=== PATIENT | female | born 1965 | race Caucasian/White ===

== ENCOUNTER 2018-08-21 15:48 | Day surgery (SDC) | payer BC ==
[2018-08-21] VITALS (21 sets, daily range): BP systolic 101–133; BP diastolic 51–86; PULSE 84–96; RESP 14–26; Ht 152.4 cm; Wt 122.4 kg
[~2018-08-21] VITALS: Ht 152.4 cm; Wt 122.4 kg
[~2018-08-21 15:48] MED LIST: ARIP5TAB14 PO; CLON0.5T14 PO; HYDR-4011 PO; LEVO50TA71 PO; ONDA8TAB9 PO; PANT40TA3 PO; SERT100T PO
[2018-08-21] MEDS ORDERED: BUPIVACAINE 0.25%/EPI (SDV) 30 ML INJ ONE (15:49)
[2018-08-21] MEDS ORDERED: POLYMYXIN/BACITRACIN 1L IRRIG ONE (15:49)
[2018-08-21] MEDS ORDERED: NEOMYC/POLYMYX/BACIT 30 GM OINT ONE (15:49)
[2018-08-21] MEDS ORDERED: LACTATED RINGER'S 1,000 ML IV SCH (17:00)
--- NOTE | 2018-08-21 17:41 | PREAC ---
Date/Time of Note Date/Time of Note DATE: 08/21/18 TIME: 17:37 Anesthesia Eval and Record Evaluation Time Pre-Procedure Interview DATE: 08/21/18 TIME: 17:37 Age 53 Sex female NPO: 8 hrs Preoperative diagnosis RIGHT FOOT FIFTH METATARSAL BASE AVULSION FRACTURE Planned procedure RIGHT FOOT METATARSAL BASE AVULSION Past Medical History Past Medical History: Includes Endo: Hypothyroid GI: GERD, Morbid obesity Psych: Depression Surgery & Anesthesia Issues No known issue Meds Anticoagulation: No Beta Tila within 24 hr: No Reason Beta Tila not given: Pt. not on B-Tila Reported Medications Hydrocodone/Acetaminophen ([place] 5-325 Tablet) 1 Each Tablet, 1 EACH PO DAILY PRN for PAIN, TAB 08/21/18 Aripiprazole* (Abilify*) 5 Mg Tab, 5 MG PO DAILY, #30 TAB 08/21/18 Clonazepam* (Clonazepam*) 0.5 Mg Tablet, 0.25 MG PO DAILY PRN for ANXIETY, TAB 08/21/18 Levothyroxine Sodium* (Levoxyl*) 50 Mcg Tablet, 50 MCG PO BEFORE BREAKFAST, #30 TAB 08/21/18 Ondansetron Hcl* (Zofran*) 8 Mg Tablet, 8 MG PO TID PRN for NAUSEA AND OR VOMITING, TAB 08/21/18 Pantoprazole* (Protonix*) 40 Mg Tablet.dr, 40 MG PO DAILY, TAB 08/21/18 Sertraline Hcl* (Zoloft*) 100 Mg Tablet, 200 MG PO DAILY, #60 TAB 08/21/18 Current Medications Lactated Ringer's 1,000 ml @ 25 mls/hr Q24H IV Last administered on 08/21/18at 16:44; Admin Dose 25 MLS/HR; Start 08/21/18 at 17:00 Meds reviewed: Yes Allergies Coded Allergies: amoxicillin (Verified Allergy, Unknown, 08/21/18) ciprofloxacin (Verified Allergy, Unknown, 08/21/18) clarithromycin (Verified Allergy, Unknown, 08/21/18) clavulanic acid (Verified Allergy, Unknown, 08/21/18) levofloxacin (Verified Allergy, Unknown, 08/21/18) Allergies Reviewed: Yes Labs/Studies Labs Reviewed: Reviewed by anesthesiologist test: Negative Studies: ECG, CXR Pre-procedure Exam Last vitals Vital Signs Date Temp Pulse Resp B/P (MAP) Pulse Ox O2 O2 Flow FiO2 Time Delivery Rate 08/21/18 97.6 87 16 111/69 97 Room Air 16:09 (83) Airway: Adequate mouth opening Mallampati: Mallampati II Teeth: Normal Lung: Normal Heart: Normal ASA Physical Status ASA physical status: 3 Emergency: None Planned Anesthetic General/MAC: ETT Pre-operative Attestations Prior to commencing anesthesia and surgery, the patient was re-evaluated, there was verification of: *The patient's identity *The results of appropriate recent lab work and preoperative vital signs *The above evaluation not changing prior to induction *Anesthetic plan, risk benefits, alternative and complications discussed with patient/family; questions answered; patient/family understands, accepts and wis hes to proceed. DAKSHA KELLOGG Aug 21, 2018 17:41
--- NOTE | 2018-08-21 18:53 | HPN ---
Date/Time of Note Date/Time of Note DATE: 08/21/18 TIME: 18:52 Interval H&P Admission Note Pt. seen H&P reviewed: No system changes JAKE WOLFE MD Aug 21, 2018 18:53
[2018-08-21] MEDS ORDERED: PROPOFOL 20 ML ONE (18:55)
[2018-08-21] MEDS ORDERED: LIDOCAINE 2% (SDV) 5 ML INJ ONE (18:55)
[2018-08-21] MEDS ORDERED: POLYMYXIN/BACITRACIN 1L IRRIG IRR ONE (18:55)
[2018-08-21] MEDS ORDERED: MIDAZOLAM 1 MG/ML 2 ML INJ ONE (18:56)
[2018-08-21] MEDS ORDERED: DESFLURANE 15 MIN ONE (19:00)
[2018-08-21] MEDS ORDERED: CEFAZOLIN 1 GM INJ ONE (19:00)
[2018-08-21] MEDS ORDERED: KETOROLAC 30 MG INJ IV SCH (19:00)
[2018-08-21] MEDS ORDERED: morphine 2 MG INJ IV PRN (19:00)
[2018-08-21] MEDS ORDERED: ROPIVACAINE 0.5 % 30 ML VIAL ONE (19:02)
[2018-08-21] MEDS ORDERED: DEXAMETHASONE 4 MG/ML 5 ML INJ ONE ×2 (19:04→19:22)
[2018-08-21] MEDS ORDERED: METOCLOPRAMIDE 10 MG INJ ONE (19:22)
[2018-08-21] MEDS ORDERED: FAMOTIDINE 20 MG INJ ONE (19:22)
[2018-08-21] MEDS ORDERED: ONDANSETRON 4 MG INJ ONE ×2 (19:22→20:36)
[2018-08-21] MEDS ORDERED: NEOMYC/POLYMYX/BACIT 30 GM OINT TOP ONE ×2 (19:43→20:40)
[2018-08-21] MEDS ORDERED: THROMBIN 5000 UNIT VIAL ONE (20:24)
[2018-08-21] MEDS ORDERED: CA CHLORIDE 10% 10 ML SYRINGE ONE ×2 (20:25→20:26)
[2018-08-21] MEDS ORDERED: CA CHLORIDE (GM) 10% 10 ML INJ ONE (20:26)
[2018-08-21] MEDS ORDERED: KETOROLAC 30 MG INJ ONE (20:36)
[2018-08-21] MEDS ORDERED: SUGAMMADEX SODIUM 200 MG/2 ML VIAL IV ONE (20:49)
--- NOTE | 2018-08-21 21:11 | PAC ---
Date/Time of Note Date/Time of Note DATE: 08/21/18 TIME: 21:11 Post-Anesthesia Notes Post-Anesthesia Note Last documented vital signs Vital Signs Date Temp Pulse Resp B/P (MAP) Pulse Ox O2 O2 Flow FiO2 Time Delivery Rate 08/21/18 99.6 80 15 101/57 100 21:09 08/21/18 87 16 111/69 97 Room Air 16:09 (83) Activity: WNL Respiratory function: WNL Cardiovascular function: WNL Mental status: Baseline Pain reasonably controlled: Yes Hydration appropriate: Yes Nausea/Vomiting absent: Yes FADY GONZALEZ DO Aug 21, 2018 21:11
--- NOTE | 2018-08-21 21:14 | QN ---
Documentation Job number: [id number] JAKE WOLFE MD Aug 21, 2018 21:14
[2018-08-21] MEDS ORDERED: OXYCODONE/ACETAMINOPHEN (5/325) TAB PO PRN ×2 (21:30)
[2018-08-21] MEDS ORDERED: HYDROmorphONE 1 MG/5 ML IV SYRINGE IV PRN (21:30)
--- NOTE | 2018-08-21 21:39 | OPR ---
DATE OF OPERATION: 08/21/2018 PREOPERATIVE DIAGNOSES: 1. 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 2. Right foot peroneal brevis tear. POSTOPERATIVE DIAGNOSES: 1. 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 2. Right foot peroneal brevis tear. PROCEDURES: 1. Right foot 5th metatarsal base fracture nonunion excision. 2. Right foot peroneal brevis tendon repair. 3. Right foot application of platelet rich plasma into the peroneal brevis. 4. Application of short leg cast. 5. Use of fluoroscopy. SURGEON: Teddy Gooden MD ADMINISTRATIVE SUPPORT ASSISTANT: None. ANESTHESIOLOGIST: Bryan Benavidez DO ANESTHESIA TYPE: General with popliteal block. TOURNIQUET TIME: 52 minutes at ankle Esmarch. ESTIMATED BLOOD LOSS: Minimal. TRANSFUSION: None. SPECIMENS: Excised bone. IMPLANTS: Arthrex suture tape and PRP from Arthrex Isidro, 5% hematocrit. COMPLICATIONS: None. CONDITION UPON LEAVING PROCEDURE: Stable. DISPOSITION: PACU. INDICATIONS: The patient is a 53-year-old female with a 1-year history of pain at the 5th metatarsal base, status post fracture of the metatarsal base. Advanced imaging shows evidence of nonunion as w ell as inflammation of the peroneal brevis. Given ongoing pain and lack of improvement on nonoperati ve management, the patient was admitted for surgery. RISK NOTE: The patient understood the risks and benefits of surgery in the patient's deering language including, but not limited to infection, bleeding, loss of limb, loss of life, need for future surge ry. The patient understood these risks and benefits by signing surgical consent form. The patient u nderstood that there is risk of deep vein thrombosis as well. DESCRIPTION OF PROCEDURE: The patient was met in the preoperative holding area and the correct opera tive extremity was marked and confirmed with the patient and consent. The patient was brought to ope rative theater, placed supine on the operative table, given preoperative antibiotics and preoperative regional block anesthesia. The patient was then given general anesthesia and then prepped and drape d in normal sterile fashion. Time-out was taken. All parties in the room agreed this was correct pa tient, extremity and procedure. An ankle Esmarch was brought up using 4-inch Esmarch tourniquet and then incision was brought down ov er the base of the 5th metatarsal with an incision beginning proximal to the junction of the skin of the and then progressing distally arching over the dorsal surface of the prominence of the meta tarsal base. I performed crescent-shaped incision. Care was taken to avoid any damage to the latera l dorsal cutaneous nerve which was identified and protected throughout the case. The insertion of th e peroneal brevis was identified with partial tear at the base then elevated and reflected dorsally t o provide better access to the avulsed bone fragment. The bony fragment was identified under fluoros copy and then shelled out with a #69 [place] blade. Care was taken to avoid any injury to the surroun ding peroneal brevis insertion. Once the avulsed fragment was removed, fluoroscopy confirmed with an AP, lateral and oblique x-rays that the avulsed fragment had been removed and sent for pathology. T he lateral edge of the 5th metatarsal was then smoothed and contoured with rasp and rongeur. There w as evidence of approximately 40% tear of the peroneal brevis which was then re-repaired with Arthrex suture tape. The repair was then shown to be in excellent condition and then the wound was irrigated thoroughly and closed in layers with 2-0 Vicryl followed by 3-0 Monocryl followed by 4-0 nylon in a vertical mattress fashion. Platelet rich plasma with 5% hematocrit was then injected at the peroneal brevis site and then the wounds were then dressed with Xeroform, 4 x 4's, soaked in platelet-poor pl asma and then placed into a well-padded short leg splint in the neutral position. At the end of the case, all sponge and needle counts were correct. The patient was taken to PACU in stable condition a nd the toes were warm and well perfused in PACU. Dictated By: TEDDY HERNANDES/NTS Conf#: [id number] DID#: [id number]
== END 2018-08-21 22:46 | disposition home or self-care (01) ==
LOC: SDS 15:48
PROVIDERS: ATTEND Orthopaedic Surgery
DX: S92.351K Displaced fracture of fifth metatarsal bone, right foot, subsequent encounter for fracture with nonunion (principal); S86.311D Strain of muscle(s) and tendon(s) of peroneal muscle group at lower leg level, right leg, subsequent encounter; X58.XXXD Exposure to other specified factors, subsequent encounter
CPT/HCPCS: 28122; 28200; 73630; 82306; 84703; J0690; J1100; J1885; J2250; J2405; J2765; J2795; J3010; 88307; 88311